=== PATIENT | female | born 1950 | race Caucasian/White ===

== ENCOUNTER 2020-07-07 14:20 | Inpatient (IN) ==
[2020-07-07] MEDS ORDERED: ALBUTEROL 2.5 MG/3 ML NEB RESP TX PRN (21:21)
[2020-07-07] MEDS ORDERED: ONDANSETRON 4 MG/2 ML VIAL IV PRN (21:21)
[2020-07-07] MEDS ORDERED: DOCUSATE SODIUM 100 MG CAPSULE PO PRN (21:21)
[2020-07-07] MEDS ORDERED: ACETAMINOPHEN 325 MG TABLET PO PRN (21:21)
[2020-07-07] MEDS ORDERED: SODIUM CHLORIDE 0.9% 1,000 ML IV SCH (21:30)
[2020-07-07 21:43] LABS: Basophils % 0.2 % (0.0-0.8); Eosinophils % 0.2 % (0.00-10.9); Hematocrit 36.3 VOL% (35.7-47.0); Hemoglobin 11.1 GM/DL (12.0-16.0); Immature Granulocytes % 0.6 %; Immature Granulocytes Absolute 0.08 #; Lymphocytes # 0.5 10*3/uL (1.4-4.0); Lymphocytes % 3.7 % (21.3-54.2); Mean Corpuscular HGB Conc 30.6 GM/DL (32-36); Mean Corpuscular Volume 99.5 FL (87-102); Monocytes % 6.8 % (1.7-12.7); Neutrophils % 88.5 % (38.7-73.9); Platelet Count 259 T/CUMM (130-400); Red Blood Count 3.65 MC/CUMM (3.8-5.5); Red Cell Distribution Width 16.4 % (9.3-17.3); White Blood Count 12.9 T/CUMM (4-12)
[2020-07-07 21:53] LABS: PT Patient Result 11.1 SECS (9.8-11.9)
[2020-07-07] MEDS ORDERED: cefTRIAXone 2,000 MG in SYRINGE 1 EACH IV SCH (22:00)
[2020-07-07 22:06] LABS: Lymphocytes 4 % (20-55); Platelet Estimate Adequate; Segmented Neutrophils 90 % (50-85); Total Cells Counted 100
[2020-07-07 22:07] LABS: Anisocytosis Slight
[2020-07-07 22:23] LABS: Alanine Aminotransferase 13 U/L (13-56); Albumin 2.1 G/DL (3.4-5.0); Alkaline Phosphatase 61 U/L (45-117); Aspartate Amino Transferase 14 U/L (0-37); Bilirubin,Total < 0.39 MG/DL (0.2-1.0); Calcium 7.9 MG/DL (8.5-10.1); Carbon Dioxide 11 MMOL/L (21-32); Estimated Glom Filtration Rate 18 ML/MIN; Glucose 194 MG/DL (74-106); Sodium 131 MMOL/L (136-145); Total Protein 6.6 G/DL (5.0-7.5)
[2020-07-07 22:28] LABS: Blood Urea Nitrogen 155 MG/DL (7-18); Osmolality,Calculated 317.7 MOS/KG (273-304)
[2020-07-07 22:29] LABS: Potassium 6.7 MMOL/L (3.5-5.1)
[2020-07-07] MEDS ORDERED: INSULIN REGULAR 100 UNIT/ML IV ONE (22:55)
[2020-07-07] MEDS ORDERED: DEXTROSE 50% 25 GM/50 ML VIAL IV ONE (22:55)
[2020-07-07] MEDS ORDERED: SODIUM BICARBONATE 50 MEQ/50 ML VIAL IV ONE ×2 (22:55→23:22)
[2020-07-07] MEDS ORDERED: SODIUM CHLORIDE 0.9% 500 ML IV ONE (22:55)
[2020-07-07] MEDS ORDERED: CALCIUM GLUCONATE 1,000 MG in SODIUM CHLORIDE 0.9% 100 ML IV ONE (22:55)
[2020-07-07] MEDS: NOREPINEPHRINE 16 MG in SODIUM CHLORIDE 0.9% 234 ML IV PRN (23:00)
[2020-07-07] MEDS ORDERED: SODIUM BICARB INJ 100 MEQ in SODIUM CHLORIDE 0.45% 1,000 ML IV SCH (23:00)
[2020-07-07] MEDS ORDERED: INSULIN REGULAR 100 UNIT/ML ONE (23:04)
[2020-07-07] MEDS: PANTOPRAZOLE 40 MG VIAL IV SCH (23:09)
[2020-07-07] MEDS: PHENYLEPHRINE INJ 160 MG in SODIUM CHLORIDE 0.9% 234 ML IV PRN (23:51)
[2020-07-08] MEDS ORDERED: LEVOFLOXACIN INJ 500 MG in PREMIX 1 EACH IV ONE (01:00)
[2020-07-08 01:13] LABS: ABG Base Excess -15.5 MMOL/L (-2.5-2.5); ABG HCO3 12.7 MMOL/L (20-26); ABG PCO2 36.3 MM HG (35-48); ABG TCO2 11.9 MMOL/L (23-27)
[2020-07-08 01:15] LABS: ABG PH 7.152 (7.35-7.45)
[2020-07-08 01:18] LABS: Bacteria,Urine Few /HPF (Few); Bilirubin,Urine Negative (Negative); Blood, Urine Large mg/dL (Negative); Glucose,Urine (UA) Negative (Negative); Ketones,Urine Negative (Negative); Mucus,Urine Few /LPF (Occasional); Nitrite,Urine Negative (Negative); Protein,Urine 100 MG/DL; RBC,Urine 146 /HPF (0-4); Renal Epithelial Cells,Urine Occasional /HPF (<1); Squamous Epithelial Cell,Urine Occasional /HPF (0-10); Urine Appearance CLOUDY (Clear); Urine Color Amber (Yellow); Urine Specific Gravity 1.014 (1.001-1.035); Urine Urobilinogen < 2.0 EU/DL (0.2-1.0); WBC,Urine 679 /HPF (0-6)
[2020-07-08] MEDS ORDERED: SODIUM BICARBONATE 50 MEQ/50 ML VIAL IV ONE (01:38)
[2020-07-08] MEDS ORDERED: GLUCAGON 1 MG VIAL IM PRN (01:51)
[2020-07-08] MEDS ORDERED: DEXTROSE 50% 25 GM/50 ML VIAL IV PRN ×2 (01:51→12:10)
[2020-07-08] MEDS: SODIUM BICARB INJ 150 MEQ in DEXTROSE 5% 850 ML IV SCH ×2 (02:15→09:42)
[2020-07-08 04:18] LABS: Basophils % 0.2 % (0.0-0.8); Eosinophils % 0.2 % (0.00-10.9); Hematocrit 33.9 VOL% (35.7-47.0); Hemoglobin 10.7 GM/DL (12.0-16.0); Immature Granulocytes % 0.6 %; Immature Granulocytes Absolute 0.07 #; Lymphocytes # 0.4 10*3/uL (1.4-4.0); Lymphocytes % 3.4 % (21.3-54.2); Mean Corpuscular HGB Conc 31.6 GM/DL (32-36); Mean Corpuscular Volume 99.1 FL (87-102); Mean Platelet Volume 10.2 FL (9.6-12.0); Monocytes % 7.8 % (1.7-12.7); Neutrophils % 87.8 % (38.7-73.9); Platelet Count 249 T/CUMM (130-400); Red Blood Count 3.42 MC/CUMM (3.8-5.5); Red Cell Distribution Width 16.5 % (9.3-17.3); White Blood Count 12.2 T/CUMM (4-12)
[2020-07-08 04:22] LABS: Alanine Aminotransferase 14 U/L (13-56); Alkaline Phosphatase 61 U/L (45-117); Aspartate Amino Transferase 12 U/L (0-37); Bilirubin,Total < 0.39 MG/DL (0.2-1.0); Blood Urea Nitrogen 150 MG/DL (7-18); Calcium 7.8 MG/DL (8.5-10.1); Carbon Dioxide 16 MMOL/L (21-32); Estimated Glom Filtration Rate 19 ML/MIN; Glucose 254 MG/DL (74-106); Osmolality,Calculated 321.5 MOS/KG (273-304); Sodium 132 MMOL/L (136-145); Total Protein 6.4 G/DL (5.0-7.5)
[2020-07-08 04:23] LABS: Potassium 6.2 MMOL/L (3.5-5.1)
[2020-07-08] MEDS ORDERED: VANCOMYCIN INJ 2,250 MG in SODIUM CHLORIDE 0.9% 500 ML IV ONE (04:30)
[2020-07-08 04:47] LABS: Free T4 (Free Thyroxine) 0.96 NG/DL (0.76-1.46)
[2020-07-08] MEDS ORDERED: SODIUM POLYSTYRENE SULFATE 15 GM/60 ML BOTTLE PO ONE (04:57)
[2020-07-08] MEDS: INSULIN REGULAR 100 UNIT/ML SUBCUT SCH ×5 (04:58→21:45)
[2020-07-08 05:31] LABS: Eosinophils 1 % (0-10); Lymphocytes 3 % (20-55); Segmented Neutrophils 93 % (50-85); Total Cells Counted 100
[2020-07-08 05:32] LABS: Hypochromasia Slight; Microcytosis 1+; Platelet Estimate Normal
[2020-07-08] MEDS: NOREPINEPHRINE 16 MG in SODIUM CHLORIDE 0.9% 234 ML IV PRN ×3 (05:41→19:14)
[2020-07-08 06:32] LABS: ABG Base Excess -8.5 MMOL/L (-2.5-2.5); ABG HCO3 17.7 MMOL/L (20-26); ABG Oxygen Saturation 98.5 % (95-100); ABG PCO2 39.6 MM HG (35-48); ABG PH 7.268 (7.35-7.45); ABG TCO2 16.3 MMOL/L (23-27)
[2020-07-08] MEDS: NYSTATIN POWDER 15 GM BOTTLE TOP SCH ×3 (09:42→21:46)
[2020-07-08] MEDS: PANTOPRAZOLE 40 MG VIAL IV SCH ×2 (09:42→21:35)
[2020-07-08 10:50] LABS: Calcium 7.6 MG/DL (8.5-10.1); Osmolality,Calculated 326.8 MOS/KG (273-304); Potassium 5.6 MMOL/L (3.5-5.1)
[2020-07-08] MEDS: HYDROCORTISONE 100 MG VIAL IV SCH ×2 (10:51→18:13)
[2020-07-08] MEDS: PHENYLEPHRINE INJ 160 MG in SODIUM CHLORIDE 0.9% 234 ML IV PRN (11:53)
[2020-07-08] MEDS: SODIUM BICARB INJ 150 MEQ in STERILE WATER INJ 850 ML IV SCH ×3 (11:53→22:23)
[2020-07-08] MEDS: MEROPENEM 500 MG in SODIUM CHLORIDE 0.9% 100 ML IV SCH (13:05)
[2020-07-08] MEDS ORDERED: MORPHINE 4 MG/1 ML VIAL IV PRN (16:02)
[2020-07-09] MEDS: MEROPENEM 500 MG in SODIUM CHLORIDE 0.9% 100 ML IV SCH ×3 (00:09→23:57)
[2020-07-09] MEDS: NOREPINEPHRINE 16 MG in SODIUM CHLORIDE 0.9% 234 ML IV PRN (01:49)
[2020-07-09] MEDS: HYDROCORTISONE 100 MG VIAL IV SCH ×3 (01:58→17:38)
[2020-07-09 04:35] LABS: ABG HCO3 21.9 MMOL/L (20-26); ABG Oxygen Saturation 99.4 % (95-100); ABG PCO2 39.9 MM HG (35-48); ABG PH 7.354 (7.35-7.45)
[2020-07-09 05:36] LABS: Bilirubin,Total 1.2 MG/DL (0.2-1.0); Calcium 7.6 MG/DL (8.5-10.1); Total Protein 6.1 G/DL (5.0-7.5)
[2020-07-09 05:37] LABS: Osmolality,Calculated 322.8 MOS/KG (273-304); Potassium 4.3 MMOL/L (3.5-5.1)
[2020-07-09 05:49] LABS: Basophils % 0.1 % (0.0-0.8); Hemoglobin 10.3 GM/DL (12.0-16.0); Immature Granulocytes % 0.6 %; Immature Granulocytes Absolute 0.07 #; Lymphocytes # 0.4 10*3/uL (1.4-4.0); Lymphocytes % 3.3 % (21.3-54.2); Mean Corpuscular HGB Conc 32.2 GM/DL (32-36); Mean Corpuscular Volume 96.4 FL (87-102); Mean Platelet Volume 10.3 FL (9.6-12.0); Platelet Count 237 T/CUMM (130-400); Red Blood Count 3.32 MC/CUMM (3.8-5.5); Red Cell Distribution Width 16.3 % (9.3-17.3); White Blood Count 12.5 T/CUMM (4-12)
[2020-07-09 06:35] LABS: Band Neutrophils 2 % (0-10); Lymphocytes 5 % (20-55); Platelet Estimate Normal; Segmented Neutrophils 90 % (50-85); Total Cells Counted 100
[2020-07-09 06:36] LABS: Anisocytosis 1+; Macrocytosis Slight
[2020-07-09] MEDS: SODIUM BICARB INJ 150 MEQ in STERILE WATER INJ 850 ML IV SCH ×3 (08:51→20:36)
[2020-07-09] MEDS: INSULIN REGULAR 100 UNIT/ML SUBCUT SCH ×4 (09:01→20:36)
[2020-07-09] MEDS: NYSTATIN POWDER 15 GM BOTTLE TOP SCH ×3 (09:02→20:36)
[2020-07-09] MEDS: PANTOPRAZOLE 40 MG VIAL IV SCH (09:05)
[2020-07-09] MEDS ORDERED: VANCOMYCIN INJ 2,000 MG in SODIUM CHLORIDE 0.9% 500 ML IV PRN (10:00)
[2020-07-09] MEDS ORDERED: VANCOMYCIN INJ 2,000 MG in SODIUM CHLORIDE 0.9% 500 ML IV ONE (12:00)
[2020-07-09] MEDS: SIMVASTATIN 40 MG TABLET PO SCH (20:36)
[2020-07-10] MEDS ORDERED: LEVOFLOXACIN INJ 250 MG in PREMIX 1 EACH IV SCH (01:00)
[2020-07-10] MEDS: HYDROCORTISONE 100 MG VIAL IV SCH ×3 (03:01→17:01)
[2020-07-10 06:33] LABS: Calcium 7.1 MG/DL (8.5-10.1); Osmolality,Calculated 322.4 MOS/KG (273-304); Potassium 3.5 MMOL/L (3.5-5.1)
[2020-07-10 06:47] LABS: Basophils % 0.2 % (0.0-0.8); Eosinophils % 0.2 % (0.00-10.9); Hematocrit 26.8 VOL% (35.7-47.0); Hemoglobin 8.6 GM/DL (12.0-16.0); Immature Granulocytes % 0.8 %; Immature Granulocytes Absolute 0.05 #; Lymphocytes # 0.4 10*3/uL (1.4-4.0); Lymphocytes % 6.1 % (21.3-54.2); Mean Corpuscular HGB Conc 32.1 GM/DL (32-36); Mean Corpuscular Volume 97.5 FL (87-102); Mean Platelet Volume 10.1 FL (9.6-12.0); Monocytes % 7.5 % (1.7-12.7); Neutrophils % 85.2 % (38.7-73.9); Red Blood Count 2.75 MC/CUMM (3.8-5.5); Red Cell Distribution Width 16.1 % (9.3-17.3)
[2020-07-10 06:48] LABS: Platelet Count 173 T/CUMM (130-400); White Blood Count 6.5 T/CUMM (4-12)
[2020-07-10] MEDS: INSULIN REGULAR 100 UNIT/ML SUBCUT SCH ×4 (07:36→20:45)
[2020-07-10] MEDS: SODIUM BICARB INJ 150 MEQ in STERILE WATER INJ 850 ML IV SCH (08:59)
[2020-07-10] MEDS: NYSTATIN POWDER 15 GM BOTTLE TOP SCH ×3 (09:03→20:45)
[2020-07-10] MEDS: MEROPENEM 500 MG in SODIUM CHLORIDE 0.9% 100 ML IV SCH (11:44)
[2020-07-10] MEDS: SODIUM CHLORIDE 0.45% 1,000 ML IV SCH (12:40)
[2020-07-10] MEDS: SIMVASTATIN 40 MG TABLET PO SCH (20:45)
[2020-07-11] MEDS: MEROPENEM 500 MG in SODIUM CHLORIDE 0.9% 100 ML IV SCH ×2 (00:08→12:06)
[2020-07-11] MEDS: HYDROCORTISONE 100 MG VIAL IV SCH ×3 (01:51→17:11)
[2020-07-11] MEDS: SODIUM CHLORIDE 0.45% 1,000 ML IV SCH ×2 (04:54→23:00)
[2020-07-11 05:36] LABS: Basophils % 0.2 % (0.0-0.8); Eosinophils % 0.4 % (0.00-10.9); Hematocrit 29.9 VOL% (35.7-47.0); Hemoglobin 9.7 GM/DL (12.0-16.0); Immature Granulocytes Absolute 0.18 #; Lymphocytes # 0.7 10*3/uL (1.4-4.0); Lymphocytes % 7.4 % (21.3-54.2); Mean Corpuscular HGB Conc 32.4 GM/DL (32-36); Mean Corpuscular Volume 96.8 FL (87-102); Monocytes % 8.2 % (1.7-12.7); Neutrophils % 81.8 % (38.7-73.9); Platelet Count 200 T/CUMM (130-400); Red Blood Count 3.09 MC/CUMM (3.8-5.5); Red Cell Distribution Width 15.6 % (9.3-17.3); White Blood Count 9.2 T/CUMM (4-12)
[2020-07-11 05:52] LABS: Calcium 7.2 MG/DL (8.5-10.1); Osmolality,Calculated 315.8 MOS/KG (273-304); Potassium 3.5 MMOL/L (3.5-5.1)
[2020-07-11 06:02] LABS: Folate 6.9 NG/ML (5.38-24.0)
[2020-07-11 06:07] LABS: Ferritin 163.9 ng/ml (8-252)
[2020-07-11] MEDS: INSULIN REGULAR 100 UNIT/ML SUBCUT SCH ×4 (07:46→21:10)
[2020-07-11] MEDS ORDERED: VANCOMYCIN INJ 2,000 MG in SODIUM CHLORIDE 0.9% 500 ML IV ONE (09:00)
[2020-07-11] MEDS: NYSTATIN POWDER 15 GM BOTTLE TOP SCH ×3 (09:49→23:01)
[2020-07-11] MEDS: SIMVASTATIN 40 MG TABLET PO SCH (23:01)
[2020-07-12] MEDS: MEROPENEM 500 MG in SODIUM CHLORIDE 0.9% 100 ML IV SCH ×2 (00:17→12:52)
[2020-07-12] MEDS: HYDROCORTISONE 100 MG VIAL IV SCH (02:47)
[2020-07-12 06:52] LABS: Basophils % 0.1 % (0.0-0.8); Eosinophils # 0.1 10*3/uL (0.0-0.87); Eosinophils % 1.3 % (0.00-10.9); Hematocrit 28.9 VOL% (35.7-47.0); Hemoglobin 9.3 GM/DL (12.0-16.0); Immature Granulocytes % 1.3 %; Lymphocytes % 12.3 % (21.3-54.2); Mean Corpuscular HGB Conc 32.2 GM/DL (32-36); Mean Platelet Volume 9.6 FL (9.6-12.0); Monocytes % 10.6 % (1.7-12.7); Neutrophils % 74.4 % (38.7-73.9); Platelet Count 186 T/CUMM (130-400); Red Blood Count 2.95 MC/CUMM (3.8-5.5); Red Cell Distribution Width 15.4 % (9.3-17.3); White Blood Count 7.7 T/CUMM (4-12)
[2020-07-12 07:03] LABS: Calcium 6.4 MG/DL (8.5-10.1); Osmolality,Calculated 313.5 MOS/KG (273-304); Potassium 3.5 MMOL/L (3.5-5.1)
[2020-07-12] MEDS ORDERED: CHOLECALCIFEROL 1,000 UNIT TABLET PO SCH (09:00)
[2020-07-12] MEDS: INSULIN REGULAR 100 UNIT/ML SUBCUT SCH ×2 (09:30→12:51)
[2020-07-12] MEDS: NYSTATIN POWDER 15 GM BOTTLE TOP SCH (09:33)
[2020-07-12 12:32] VITALS: BP 113/49
[2020-07-12] MEDS: SODIUM CHLORIDE 0.45% 1,000 ML IV SCH (13:03)
[2020-07-12] MEDS ORDERED: INFLUENZA VIRUS VACCINE 0.5 ML SYRINGE IM ONE (13:12)
[2020-07-12] MEDS ORDERED: HYDROCORTISONE 100 MG VIAL IV SCH (18:00)
== END 2020-07-12 15:51 | DRG 871 ==
LOC: N.CC 19:10 → SUATTDRO 19:10 → N.TELEN 07-09 18:20
PROVIDERS: ADMIT Internal Medicine; ATTEND Hospitalist